=== PATIENT | female | born 1960 | race Caucasian/White ===

== ENCOUNTER 2018-02-03 21:02 | Emergency (ER) | payer MEDICAID ==
[~2018-02-03] VITALS: Ht 167.6 cm; Wt 72.6 kg
[~2018-02-03 21:02] MED LIST: GABA-339 PO; LEVO175T31 PO
[2018-02-03 21:34] VITALS: BP 131/108
[2018-02-04] MEDS ORDERED: TRIAMCINOLONE 40MG/ML 1ML VIAL IM ONE (00:15)
[2018-02-04] MEDS ORDERED: LIDOCAINE 1% (LOCAL ANESTH.) PF 5ml SDV IJ ONE (00:15)
[2018-02-04] MEDS ORDERED: LIDOCAINE 1% HCL (LOCAL ANESTH.) INJ 20ML MDV ONE (00:37)
== END 2018-02-04 01:30 | disposition home or self-care (01) ==
LOC: ER 21:02
DX: M75.02 Adhesive capsulitis of left shoulder (principal); F17.210 Nicotine dependence, cigarettes, uncomplicated
CPT/HCPCS: 73030; 96372; 99284; J2001; J3301

== ENCOUNTER 2019-05-08 17:08 | Emergency (ER) | payer MEDICAID ==
[~2019-05-08] VITALS: Ht 167.6 cm; Wt 67.1 kg
[2019-05-08 18:32] VITALS: BP 166/88
[2019-05-08] MEDS ORDERED: DexAMETHasone SOD PHOS 10MG/1ML VIAL INJ IM ONE (19:00)
[2019-05-08] MEDS ORDERED: BACLOFEN 10 MG TAB PO ONE (19:00)
[2019-05-08] MEDS ORDERED: HYDROcodone-ACET 10/325MG TAB PO ONE (19:00)
== END 2019-05-08 20:00 | disposition home or self-care (01) ==
LOC: ER 17:08
DX: S13.4XXA Sprain of ligaments of cervical spine, initial encounter (principal); M62.838 Other muscle spasm; F17.210 Nicotine dependence, cigarettes, uncomplicated; Z90.710 Acquired absence of both cervix and uterus; Z86.39 Personal history of other endocrine, nutritional and metabolic disease; V49.9XXA Car occupant (driver) (passenger) injured in unspecified traffic accident, initial encounter; Y93.89 Activity, other specified; Y92.488 Other paved roadways as the place of occurrence of the external cause; Y99.8 Other external cause status
CPT/HCPCS: 70450; 72040; 72100; 96372; 99284; J1100

== ENCOUNTER 2020-02-03 11:28 | Emergency (ER) | payer MEDICAID ==
[~2020-02-03] VITALS: Ht 165.1 cm; Wt 72.6 kg
[~2020-02-03 11:28] MED LIST changes: +ALBU0.084 NEB; +FOLI1TAB6 PO; +GEMF600T7 PO; +IPR002IS NEB; +LEVO500T21 PO; +LISI-275 PO; +OMEP-335 PO; +PRED20TA2 PO
[2020-02-03 12:16] VITALS: BP 145/78
[2020-02-03] MEDS ORDERED: ACETAMINOPHEN/CODEINE#3 (300/30mg) TAB PO ONE (12:30)
== END 2020-02-03 13:36 | disposition home or self-care (01) ==
LOC: ER 11:28
DX: M26.621 Arthralgia of right temporomandibular joint (principal); M19.90 Unspecified osteoarthritis, unspecified site; J44.9 Chronic obstructive pulmonary disease, unspecified; E11.9 Type 2 diabetes mellitus without complications; E07.9 Disorder of thyroid, unspecified
CPT/HCPCS: 70486